=== PATIENT | male | born 2000 | race Caucasian/White ===

== ENCOUNTER 2023-09-14 21:32 | Emergency (ER) | payer BC ==
[~2023-09-14] VITALS: Ht 188 cm; Wt 88.6 kg
[2023-09-14 21:49] VITALS: BP 146/85; TEMP 98
[2023-09-14 22:58] VITALS: PULSE 64
== END 2023-09-14 22:58 | disposition home or self-care (01) ==
LOC: COL.ER 21:32
DX: S09.90XA Unspecified injury of head, initial encounter (principal); S00.33XA Contusion of nose, initial encounter; W50.0XXA Accidental hit or strike by another person, initial encounter; W18.30XA Fall on same level, unspecified, initial encounter; Y93.67 Activity, basketball